=== PATIENT | male | born 1955 | race Caucasian/White ===

== ENCOUNTER 2017-07-27 09:21 | Outpatient (CLI) | payer OTHER ==
[~2017-07-27 09:21] MED LIST: AMARYL; ANADROL-5050 MG; GLUMETZA1000 MG; LANTUS100 U/ML SUBCUTANEO; NALDOL80 MG; SYNTHROID137 MCG; SYNTHROID150 MCG
== END 2017-07-27 09:34 | disposition home or self-care (01) ==
LOC: LAB 09:21
DX: G93.49 Other encephalopathy (principal); D68.8 Other specified coagulation defects; E03.8 Other specified hypothyroidism

== ENCOUNTER → 2017-09-04 | Emergency (ER) | payer OTHER ==
[~2017-09-04] VITALS: Ht 157.5 cm; Wt 127.0 kg
[~2017-09-04] MED LIST changes: +FOLIC ACID1 MG; +SYNTHROID200 MCG
== END | disposition home or self-care (01) ==
LOC: ER 12:30
DX: N39.0 Urinary tract infection, site not specified (principal); R50.9 Fever, unspecified; E11.9 Type 2 diabetes mellitus without complications

== ENCOUNTER 2017-09-07 08:44 | Outpatient (CLI) | payer OTHER | END 2017-09-07 09:00 | disposition home or self-care (01) | LOC: LAB 08:44 | DX: E11.65 Type 2 diabetes mellitus with hyperglycemia (principal); D68.8 Other specified coagulation defects; E64.9 Sequelae of unspecified nutritional deficiency; G93.49 Other encephalopathy ==

== ENCOUNTER → 2017-10-01 10:38 | Outpatient (CLI) | payer OTHER | END | disposition home or self-care (01) | LOC: LAB 10:38 | DX: N39.0 Urinary tract infection, site not specified (principal); N40.1 Benign prostatic hyperplasia with lower urinary tract symptoms ==

== ENCOUNTER 2017-10-20 05:37 | Emergency (ER) | payer OTHER ==
[~2017-10-20] VITALS: Ht 157.5 cm; Wt 126.1 kg
[2017-10-20] MEDS ORDERED: LEVAQUIN750 MG PO (11:32)
[2017-10-20] MEDS ORDERED: CELEBREX100 MG PO (11:32)
== END 2017-10-20 11:55 | disposition home or self-care (01) ==
LOC: ER 05:37
DX: L03.116 Cellulitis of left lower limb (principal)

== ENCOUNTER 2017-11-05 09:51 | Outpatient (CLI) | payer OTHER ==
[~2017-11-05 09:51] MED LIST changes: +CELEBREX100 MG PO; +LEVAQUIN750 MG PO
== END 2017-11-05 09:53 | disposition home or self-care (01) ==
LOC: LAB 09:51
DX: E11.65 Type 2 diabetes mellitus with hyperglycemia (principal)

== ENCOUNTER 2017-12-17 16:08 | Emergency (ER) | payer OTHER ==
[~2017-12-17] VITALS: Ht 157.5 cm; Wt 127.0 kg
== END 2017-12-17 18:25 | disposition home or self-care (01) ==
LOC: ER 16:08
DX: B34.9 Viral infection, unspecified (principal); L03.116 Cellulitis of left lower limb

== ENCOUNTER → 2017-12-28 | Outpatient (CLI) | payer OTHER | END | disposition home or self-care (01) | LOC: LAB 08:25 | DX: E03.8 Other specified hypothyroidism (principal); L03.90 Cellulitis, unspecified; E78.2 Mixed hyperlipidemia; E11.65 Type 2 diabetes mellitus with hyperglycemia ==

== ENCOUNTER 2018-03-14 07:51 | Outpatient (CLI) | payer OTHER | END 2018-03-14 09:04 | disposition home or self-care (01) | LOC: LAB 07:51 | DX: E11.65 Type 2 diabetes mellitus with hyperglycemia (principal); E03.8 Other specified hypothyroidism; N20.9 Urinary calculus, unspecified ==

== ENCOUNTER 2018-04-27 14:11 | Emergency (ER) | payer OTHER ==
[~2018-04-27] VITALS: Ht 157.5 cm; Wt 130.2 kg
== END 2018-04-27 18:10 | disposition home or self-care (01) ==
LOC: ER 14:11
DX: B34.9 Viral infection, unspecified (principal); R11.0 Nausea; D69.6 Thrombocytopenia, unspecified

== ENCOUNTER 2018-06-12 09:19 | Outpatient (CLI) | payer OTHER | END 2018-06-12 09:40 | disposition home or self-care (01) | LOC: LAB 09:19 | DX: D68.8 Other specified coagulation defects (principal); E78.2 Mixed hyperlipidemia; E11.21 Type 2 diabetes mellitus with diabetic nephropathy; E11.65 Type 2 diabetes mellitus with hyperglycemia; E03.8 Other specified hypothyroidism ==

== ENCOUNTER 2018-09-05 09:10 | Outpatient (CLI) | payer OTHER | END 2018-09-05 13:27 | disposition home or self-care (01) | LOC: LAB 09:10 | DX: E11.65 Type 2 diabetes mellitus with hyperglycemia (principal); D68.8 Other specified coagulation defects; K71.51 Toxic liver disease with chronic active hepatitis with ascites; E11.21 Type 2 diabetes mellitus with diabetic nephropathy ==

== ENCOUNTER 2018-10-04 08:58 | Outpatient (CLI) | payer OTHER | END 2018-10-04 14:22 | disposition home or self-care (01) | LOC: LAB 08:58 | DX: D68.8 Other specified coagulation defects (principal); D64.89 Other specified anemias; C22.0 Liver cell carcinoma ==

== ENCOUNTER → 2018-12-13 08:55 | Outpatient (CLI) | payer OTHER | END | disposition home or self-care (01) | LOC: LAB 08:55 | DX: N20.9 Urinary calculus, unspecified (principal); B18.8 Other chronic viral hepatitis ==

== ENCOUNTER → 2018-12-13 | Outpatient (CLI) | payer OTHER | END | disposition home or self-care (01) | LOC: SONOGRAMA 10:15 | DX: I81 Portal vein thrombosis (principal) ==

== ENCOUNTER 2019-03-20 07:50 | Outpatient (CLI) | payer OTHER | END 2019-03-20 08:02 | disposition home or self-care (01) | LOC: LAB 07:50 | DX: B18.8 Other chronic viral hepatitis (principal); R78.2 Finding of cocaine in blood; N20.2 Calculus of kidney with calculus of ureter; D64.89 Other specified anemias; D68.8 Other specified coagulation defects ==

== ENCOUNTER → 2019-06-16 10:54 | Outpatient (CLI) | payer OTHER | END | disposition home or self-care (01) | LOC: LAB 10:54 | DX: D68.8 Other specified coagulation defects (principal); E11.21 Type 2 diabetes mellitus with diabetic nephropathy; D64.89 Other specified anemias ==

== ENCOUNTER → 2020-01-06 | Emergency (ER) | payer OTHER ==
[~2020-01-06] VITALS: Ht 157.5 cm; Wt 136.1 kg
[~2020-01-06] MED LIST changes: +CIPRO500 MG PO; +COZAAR25 MG; +KETO10TA2 PO; +SYNTHROID175 MCG
== END | disposition home or self-care (01) ==
LOC: ER 20:50
DX: N20.0 Calculus of kidney (principal); K57.90 Diverticulosis of intestine, part unspecified, without perforation or abscess without bleeding; N39.0 Urinary tract infection, site not specified

== ENCOUNTER 2020-01-19 07:57 | Outpatient (CLI) | payer OTHER | END 2020-01-19 08:07 | disposition home or self-care (01) | LOC: LAB 07:57 | PROVIDERS: ATTEND Specialist | DX: N39.0 Urinary tract infection, site not specified (principal) ==

== ENCOUNTER 2020-04-19 09:39 | Outpatient (CLI) | payer OTHER | END 2020-04-19 09:47 | disposition home or self-care (01) | LOC: LAB 09:39 | PROVIDERS: ATTEND Specialist | DX: D68.8 Other specified coagulation defects (principal); E78.2 Mixed hyperlipidemia; D64.89 Other specified anemias; E03.8 Other specified hypothyroidism; E11.65 Type 2 diabetes mellitus with hyperglycemia; E11.21 Type 2 diabetes mellitus with diabetic nephropathy ==

== ENCOUNTER 2020-04-19 10:39 | Outpatient (CLI) | payer OTHER | END 2020-04-19 10:50 | disposition home or self-care (01) | LOC: SONOGRAMA 10:39 | PROVIDERS: ATTEND Specialist | DX: N20.2 Calculus of kidney with calculus of ureter (principal); N20.1 Calculus of ureter ==

== ENCOUNTER 2020-10-20 19:57 | Emergency (ER) | payer OTHER ==
[~2020-10-20] VITALS: Ht 157.5 cm; Wt 131.5 kg
[2020-10-21] MEDS ORDERED: CEPHALEXIN500 MG PO (02:13)
[2020-10-21] MEDS ORDERED: PHAZYME250 MG PO (02:13)
[2020-10-21] MEDS ORDERED: DOLOGESIC-DF 51 EACH PO (02:13)
== END 2020-10-21 02:26 | disposition home or self-care (01) ==
LOC: ER 19:57
DX: N39.0 Urinary tract infection, site not specified (principal); R10.2 Pelvic and perineal pain

== ENCOUNTER → 2020-11-19 11:56 | Outpatient (CLI) | payer OTHER ==
[~2020-11-19 11:56] MED LIST changes: +CEPHALEXIN500 MG PO; +CHILDREN'S ASPI81 MG; +DOLOGESIC-DF 51 EACH PO; +HUMALOG100 UNIT/2; +LANTUS SOL100 UNIT/1; +PHAZYME250 MG PO
== END | disposition home or self-care (01) ==
LOC: LAB 11:56
PROVIDERS: ATTEND Specialist
DX: D64.89 Other specified anemias (principal); D68.8 Other specified coagulation defects; E11.65 Type 2 diabetes mellitus with hyperglycemia; E11.21 Type 2 diabetes mellitus with diabetic nephropathy; K75.81 Nonalcoholic steatohepatitis (NASH)

== ENCOUNTER → 2021-01-21 09:53 | Outpatient (CLI) | payer OTHER | END | disposition home or self-care (01) | LOC: LAB 09:53 | PROVIDERS: ATTEND Specialist | DX: N39.0 Urinary tract infection, site not specified (principal); N40.1 Benign prostatic hyperplasia with lower urinary tract symptoms; E11.65 Type 2 diabetes mellitus with hyperglycemia; E03.8 Other specified hypothyroidism; E78.2 Mixed hyperlipidemia ==

== ENCOUNTER 2021-02-02 17:19 | Emergency (ER) | payer OTHER ==
[~2021-02-02] VITALS: Ht 157.5 cm; Wt 136.1 kg
[~2021-02-02 17:19] MED LIST changes: -CHILDREN'S ASPI81 MG; -HUMALOG100 UNIT/2; -LANTUS SOL100 UNIT/1
[2021-02-02] MEDS ORDERED: LANTUS SOL100 UNIT/1 (17:36)
[2021-02-02] MEDS ORDERED: CHILDREN'S ASPI81 MG (17:36)
[2021-02-02] MEDS ORDERED: HUMALOG100 UNIT/2 (17:36)
== END 2021-02-03 00:41 ==
LOC: ER 17:19
DX: N39.0 Urinary tract infection, site not specified (principal); R10.30 Lower abdominal pain, unspecified